=== PATIENT | male | born 1975 | race Caucasian/White ===

== ENCOUNTER → 2024-08-10 13:58 | Outpatient (REF) | payer BC, SELFPAY | LOC: MRI 3T 13:58 | PROVIDERS: ATTENDING PHYSICIAN Internal Medicine Gastroenterology; FAMILY PHYSICIAN Family Medicine | DX: K50.00 Crohn's disease of small intestine without complications (principal); Z98.0 Intestinal bypass and anastomosis status | CPT/HCPCS: 72197; 74183; A9585 ==

== ENCOUNTER → 2024-09-07 13:07 | Outpatient (REF) | payer BC, SELFPAY | LOC: RAD 13:07 | PROVIDERS: ATTENDING PHYSICIAN Physician Assistant; FAMILY PHYSICIAN Family Medicine | DX: Z11.7 Encounter for testing for latent tuberculosis infection (principal); K50.00 Crohn's disease of small intestine without complications; R76.8 Other specified abnormal immunological findings in serum | CPT/HCPCS: 71046 ==

== ENCOUNTER → 2024-10-05 17:41 | Outpatient (REF) | payer BC, SELFPAY | LOC: RAD 17:41 | PROVIDERS: ATTENDING PHYSICIAN Internal Medicine Rheumatology; FAMILY PHYSICIAN Family Medicine | DX: K50.019 Crohn's disease of small intestine with unspecified complications (principal); L40.0 Psoriasis vulgaris; M46.1 Sacroiliitis, not elsewhere classified | CPT/HCPCS: 72110; 72200 ==